=== PATIENT | female | born 1960 | race Two or more races ===

== ENCOUNTER 2020-04-21 12:31 | Emergency (ER) | payer MEDICAID ==
[~2020-04-21] VITALS: Ht 157.5 cm; Wt 112.9 kg
[~2020-04-21 12:31] MED LIST: GABA1POW27 PO; GEMF600T7 PO; INSLANTI SC; INSUINJ9 SUBCUT; LEVO125T7 PO; LEVO500T21 PO; LIRA18IN2 SUBCUT; LISI-275 PO; METR500T PO; NOR10T PO
[2020-04-21 12:34] VITALS: BP 121/67
[2020-04-21] MEDS ORDERED: KETOROLAC TROMETH 60MG/2ML VIAL IM ONE (14:30)
== END 2020-04-21 15:14 | disposition home or self-care (01) ==
LOC: ER 12:31
DX: S86.912A Strain of unspecified muscle(s) and tendon(s) at lower leg level, left leg, initial encounter (principal); S29.011A Strain of muscle and tendon of front wall of thorax, initial encounter; S90.32XA Contusion of left foot, initial encounter; E11.9 Type 2 diabetes mellitus without complications; I10 Essential (primary) hypertension; E07.9 Disorder of thyroid, unspecified; X58.XXXA Exposure to other specified factors, initial encounter; Y93.89 Activity, other specified; Y92.89 Other specified places as the place of occurrence of the external cause; Y99.8 Other external cause status
CPT/HCPCS: 71101; 73590; 73630; 96372; 99284; J1885

== ENCOUNTER 2021-12-29 17:05 | Emergency (ER) | payer MEDICAID, OTHER ==
[~2021-12-29] VITALS: Ht 154.9 cm; Wt 95.3 kg
[~2021-12-29 17:05] MED LIST changes: -GABA1POW27 PO; +GABAPOW36 PO; +GEMF-19 PO; -GEMF600T7 PO; -LEVO500T21 PO; +LEVO500T31 PO
[2021-12-29 19:35] LABS: Basophils # (auto) 0.1 10 ^3/uL (0-0.2); Basophils % (auto) 0.5 % (0.0-2.0); Eosinophils # (auto) 0.4 10 ^3/uL (0-0.8); Eosinophils % (auto) 3.5 % (0.0-7.0); Hematocrit 39.8 % (36.0-46.0); Hemoglobin 13.8 g/dL (12.2-16.2); Lymphocytes # (auto) 3.2 10 ^3/uL (0.4-5.4); Lymphocytes % (auto) 29.8 % (10.0-50.0); Mean Corpuscular Hemoglobin 27.8 pg (28.0-32.0); Mean Corpuscular Hgb Conc. 34.6 g/dL (32.0-36.0); Mean Corpuscular Volume 80.3 fL (80.0-100.0); Monocytes # (auto) 0.9 10 ^3/uL (0-1.3); Neutrophils # (auto) 6.2 10 ^3/uL (1.6-8.6); Neutrophils % (auto) 58.2 % (37.0-80.0); Red Blood Cells 4.96 10^6/uL (4.0-5.20); White Blood Cell 10.6 10^3/uL (4.4-10.8)
[2021-12-29 19:51] LABS: Albumin 3.5 g/dL (3.4-5.0); BUN/Creatinine Ratio 17.7; Calcium 9.2 mg/dL (8.5-10.1); Potassium 3.3 mmol/L (3.5-5.1)
[2021-12-29 19:55] LABS: Bilirubin, Total 0.3 mg/dL (0.2-1.0); Total Protein 7.1 g/dL (6.4-8.2)
[2021-12-29 22:50] VITALS: BP 137/68
== END 2021-12-29 22:56 | disposition home or self-care (01) ==
LOC: ER 17:05
DX: R07.89 Other chest pain (principal); I10 Essential (primary) hypertension; E11.9 Type 2 diabetes mellitus without complications; E03.9 Hypothyroidism, unspecified; Z90.710 Acquired absence of both cervix and uterus; Z90.89 Acquired absence of other organs; Z79.4 Long term (current) use of insulin; Z79.899 Other long term (current) drug therapy
CPT/HCPCS: 36415; 80053; 84484; 85025; 93005